=== PATIENT | female | born 1995 | race Caucasian/White ===

== ENCOUNTER 2019-04-12 06:15 | Inpatient (IN) | payer OTHER ==
[2019-04-12] VITALS (7 sets, daily range): BP systolic 112–126; BP diastolic 40–71
[~2019-04-12] VITALS: Ht 154.9 cm; Wt 100.7 kg
[2019-04-12] MEDS ORDERED: LACTATED RINGERS 1,000 ML IV SCH (07:00)
[2019-04-12] MEDS ORDERED: CITRIC ACID/SODIUM CITRATE 30 ML UDC PO SCH (07:00)
[2019-04-12 07:57] LABS: BASOPHILS % (AUTO) 0.4 % (0.0-2.0); EOSINOPHILS # (AUTO) 0.1 K/uL (0-0.4); EOSINOPHILS % (AUTO) 0.8 % (0.0-4.0); HEMATOCRIT 38.7 % (36-48); HEMOGLOBIN 12.7 g/dL (12.0-16.0); LYMPHOCYTES # (AUTO) 2.1 K/uL (2.5-16.5); LYMPHOCYTES % (AUTO) 25.3 % (20.5-51.1); MEAN CORPUSCULAR HEMOGLOBIN 29 pg (27-31); MEAN CORPUSCULAR HGB CONC 33 g/dL (33-37); MEAN CORPUSCULAR VOLUME 87.3 fL (80-94); MONOCYTES # (AUTO) 0.6 K/uL (0.8-1.0); MONOCYTES % (AUTO) 7.1 % (1.7-9.3); NEUTROPHILS # (AUTO) 5.5 K/uL (1.8-7.7); NEUTROPHILS % (AUTO) 66.4 % (42.2-75.2); PLATELET COUNT (AUTO) 211 K/uL (140-450); RED BLOOD CELL COUNT(AUTO) 4.44 MIL/uL (4.20-5.40); RED CELL DISTRIBUTION WIDTH 14.6 % (11.6-13.7); WHITE BLOOD COUNT (AUTO) 8.3 K/uL (4.8-10.8)
--- NOTE | 2019-04-12 08:16 | NUR ---
PATIENT HAS BEEN SCREENED AND CATEGORIZED LOW NUTRITION RISK. PATIENT WILL BE SEEN WITHIN 7 DAYS OF ADMISSION. 04/18/[address]
[2019-04-12] MEDS ORDERED: fentaNYL 0.05 MG/ML VIAL ONE (08:46)
[2019-04-12] MEDS ORDERED: MORPHINE PRES FREE 10 MG/10 ML AMP IV ONE (08:47)
[2019-04-12] MEDS ORDERED: ePHEDrine 50 MG/ML VIAL ONE (09:11)
[2019-04-12] MEDS ORDERED: BUPIVACAINE-MPF 0.75% 10 ML VIAL INJ ONE (09:11)
[2019-04-12] MEDS ORDERED: hydrALAZINE 20 MG/ML VIAL ONE (09:11)
[2019-04-12] MEDS ORDERED: PHENYLEPHRINE 10 MG/ML VIAL ONE (09:11)
[2019-04-12 09:18] LABS: CARBON DIOXIDE 20.1 mmol/L (21-32); POTASSIUM 4.1 mmol/L (3.5-5.1)
[2019-04-12 09:19] LABS: CREATININE 0.6 mg/dL (0.6-1.3)
[2019-04-12 09:21] LABS: TOTAL BILIRUBIN 0.6 mg/dL (0.0-1.0)
[2019-04-12 09:22] LABS: ALBUMIN 2.3 g/dL (3.4-5.0)
[2019-04-12] MEDS ORDERED: BUPRENORPHINE 0.3 MG/ML VIAL IV PRN (09:35)
[2019-04-12] MEDS ORDERED: IBUPROFEN 800 MG TAB PO PRN (09:35)
[2019-04-12] MEDS ORDERED: TEMAZEPAM 15 MG CAP PO PRN (09:35)
[2019-04-12] MEDS ORDERED: oxyCODONE/APAP 5/325 MG 1 TAB TAB PO PRN (09:35)
[2019-04-12] MEDS ORDERED: METHYLERGONOVINE 0.2 MG/ML AMP IM PRN (09:35)
[2019-04-12] MEDS ORDERED: KETOROLAC 30 MG/ML VIAL IVP PRN (09:50)
[2019-04-12] MEDS ORDERED: NALOXONE 0.4 MG/ML VIAL IVP PRN ×3 (09:50)
[2019-04-12] MEDS ORDERED: NALBUPHINE 10 MG/ML AMP IVP PRN (09:50)
[2019-04-12] MEDS ORDERED: ONDANSETRON 4 MG/2 ML VIAL IVP PRN ×2 (09:50)
[2019-04-12] MEDS ORDERED: BLOOD GLUCOSE MONITORING 1 DEV DEV FS SCH (09:50)
[2019-04-12] MEDS ORDERED: diphenhydrAMINE 50 MG/ML VIAL IVP PRN (09:50)
[2019-04-12] MEDS ORDERED: diphenhydrAMINE 50 MG/ML VIAL ONE (09:57)
[2019-04-12] MEDS ORDERED: OXYTOCIN 20 UNITS/LR PREMIX 1,000 ML IV ONE ×2 (09:58→20:50)
[2019-04-12] MEDS ORDERED: NACL 0.9% 1,000 ML IV SCH (10:40)
[2019-04-12 11:33] LABS: BARBITURATE, URINE NEG. ng/ml (NEG <=200); BENZODIAZEPINE, URINE NEG. ng/mL (NEG <=200); CANNABINOID, URINE NEG. ng/mL (NEG <=50); COCAINE, URINE NEG. ng/mL (NEG <=300); OPIATE, URINE NEG. ng/mL (NEG <=2000); PHENCYCLIDINE SCREEN,URINE NEG. ng/mL (NEG <=25)
--- NOTE | 2019-04-12 11:45 | NUR ---
TRANSFERRED FROM PER BED ACCOMPANIED BY [facility] NURSES S/P C- SECTION DUE TO LOW BP. PT IS AWAKE, ALERT AND ORIENTED. DENIES ANY DISCOMFORTS AT THIS TIME. 02 SAT 100 % ON RA. LUNGS CLEAR. RESP. EASY AND REGULAR. MANAGER HEALTH SHOWS SINUS RHYTHM WITHOUT ECTOPICS. IV LR WITH 20 UNITS PITOCIN INFUSING VIA LEFT HAND PERIPHERAL IV SITE. ASHER CATH. INTACT AND PATENT DRAINING TO YELLOWISH CLEAR URINE. ABD. SOFT. ABDOMINAL DRESSINGS DRY AND INTACT. MODERATE AMOUNT OF LOCHIA RUBRA NOTED. PERINEAL CARE DONE. SENSATION PRESENT ON L2. SL. NON PITTING EDEMA OF EXTREMITIES NOTED. ABLE TO TURN TO SIDED WITH MINIMAL ASSIST. HOB ELEVATED 30 DEGREES.
--- NOTE | 2019-04-12 12:05 | NUR ---
DR. PETTY CALLED. UPDATED ON PT'S CONDITION AND VITAL SIGNS. WILL TRANSFER PT. TO [facility] 1 HR. AFTER VITAL SIGNS ARE STABLE.
--- NOTE | 2019-04-12 12:15 | NUR ---
AT BEDSIDE. UPDATED ON PT'S CONDITION.
--- NOTE | 2019-04-12 12:40 | NUR ---
[facility] HERE TO CHECK PT.
--- NOTE | 2019-04-12 13:00 | NUR ---
BP 126/67. DENIES ANY DISCOMFORTS. 02 SAT 100% ON RA. ABD. DRESSINGS DRY AND INTACT. TRANSFERRED TO ROOM 217 PER BED.
--- NOTE | 2019-04-12 13:05 | NUR ---
REPORT GIVEN TO VLAD NOLAN.
[2019-04-12 13:16] LABS: APPEARANCE,URINE CLEAR (CLEAR); COLOR,URINE YELLOW (YELLOW)
[2019-04-12 13:17] LABS: BILIRUBIN,URINE NEGATIVE (NEGATIVE); BLOOD, URINE NEGATIVE (NEGATIVE); LEUKOCYTE ESTERASE ,URINE TRACE (NEGATIVE); NITRITE, URINE NEGATIVE (NEGATIVE); UGLUCOSE NEGATIVE (NEGATIVE)
[2019-04-12 13:20] LABS: RBC,URINE 0-5 /HPF (0-5); WBC,URINE 0-5 /HPF (0-5)
[2019-04-12] MEDS ORDERED: SENNA 8.6 MG TAB PO SCH (21:00)
[2019-04-12] MEDS: KETOROLAC 30 MG/ML VIAL IVP PRN (23:20)
[2019-04-13] MEDS ORDERED: OXYTOCIN 20 UNITS/LR PREMIX 1,000 ML IV ONE (05:15)
[2019-04-13] MEDS ORDERED: OXYTOCIN 20 UNITS in LACTATED RINGERS 1,000 ML IV SCH (05:20)
[2019-04-13] MEDS: KETOROLAC 30 MG/ML VIAL IVP PRN ×2 (06:04→19:51)
[2019-04-13 06:30] LABS: BASOPHILS % (AUTO) 0.2 % (0.0-2.0); EOSINOPHILS # (AUTO) 0.1 K/uL (0-0.4); EOSINOPHILS % (AUTO) 0.8 % (0.0-4.0); HEMATOCRIT 36.1 % (36-48); HEMOGLOBIN 11.8 g/dL (12.0-16.0); LYMPHOCYTES # (AUTO) 1.6 K/uL (2.5-16.5); LYMPHOCYTES % (AUTO) 12.8 % (20.5-51.1); MEAN CORPUSCULAR HEMOGLOBIN 29 pg (27-31); MEAN CORPUSCULAR HGB CONC 33 g/dL (33-37); MEAN CORPUSCULAR VOLUME 87.1 fL (80-94); MONOCYTES # (AUTO) 0.9 K/uL (0.8-1.0); MONOCYTES % (AUTO) 7.4 % (1.7-9.3); NEUTROPHILS # (AUTO) 9.8 K/uL (1.8-7.7); NEUTROPHILS % (AUTO) 78.8 % (42.2-75.2); PLATELET COUNT (AUTO) 163 K/uL (140-450); RED BLOOD CELL COUNT(AUTO) 4.15 MIL/uL (4.20-5.40); RED CELL DISTRIBUTION WIDTH 15.1 % (11.6-13.7); WHITE BLOOD COUNT (AUTO) 12.4 K/uL (4.8-10.8)
[2019-04-13] MEDS: CALCIUM POLYCARBOPHIL 625 MG TAB PO SCH ×3 (13:05→21:27)
[2019-04-13] MEDS: HYDROcodone/APAP 5/325 MG 1 TAB TAB PO PRN (13:05)
[2019-04-13] MEDS: BISACODYL 5 MG TABEC PO SCH ×2 (13:06→21:27)
[2019-04-13] MEDS: SIMETHICONE 80 MG TAB.CHEW PO PRN ×2 (13:06→21:28)
[2019-04-13] MEDS: DOCUSATE SOD/SENNA 50/8.6 MG 1 TAB PO SCH (21:28)
[2019-04-14] MEDS: HYDROcodone/APAP 5/325 MG 1 TAB TAB PO PRN ×4 (04:17→20:38)
[2019-04-14] MEDS: BISACODYL 5 MG TABEC PO SCH ×2 (09:04→20:36)
[2019-04-14] MEDS: CALCIUM POLYCARBOPHIL 625 MG TAB PO SCH ×4 (09:05→20:40)
[2019-04-14] MEDS: DOCUSATE SOD/SENNA 50/8.6 MG 1 TAB PO SCH (20:37)
[2019-04-14] MEDS ORDERED: INFLUENZA VACCINE QUAD 0.5 ML SYR IMVAC PRN (21:30)
[2019-04-15] MEDS: HYDROcodone/APAP 5/325 MG 1 TAB TAB PO PRN ×3 (02:50→17:22)
[2019-04-15] MEDS: CALCIUM POLYCARBOPHIL 625 MG TAB PO SCH ×4 (09:00→21:11)
[2019-04-15] MEDS: BISACODYL 5 MG TABEC PO SCH ×2 (09:01→21:10)
[2019-04-15] MEDS: DOCUSATE SOD/SENNA 50/8.6 MG 1 TAB PO SCH (21:10)
[2019-04-16] MEDS: HYDROcodone/APAP 5/325 MG 1 TAB TAB PO PRN ×2 (01:11→06:50)
[2019-04-16] MEDS: BISACODYL 5 MG TABEC PO SCH (10:02)
[2019-04-16] MEDS: CALCIUM POLYCARBOPHIL 625 MG TAB PO SCH (10:02)
== END 2019-04-16 13:05 | disposition home or self-care (01) | DRG 540 ==
LOC: MLD 06:15 → MFCC 08:55 → MIC 11:57 → MFCC 13:00
PROVIDERS: ADMIT Obstetrics & Gynecology; ATTEND Obstetrics & Gynecology
PROC: 3E0234Z Introduction of Serum, Toxoid and Vaccine into Muscle, Percutaneous Approach (ICD-10-PCS; 2019-04-12)
PROC: 10D00Z1 Extraction of Products of Conception, Low, Open Approach (ICD-10-PCS; principal; 2019-04-12 07:30)
DX: O36.63X0 Maternal care for excessive fetal growth, third trimester, not applicable or unspecified (principal); O24.429 Gestational diabetes mellitus in childbirth, unspecified control; Z37.0 Single live birth; Z3A.39 39 weeks gestation of pregnancy; Z23 Encounter for immunization
CPT/HCPCS: 36415; 51702; 80053; 80305; 81001; 82948; 85025; 86592; 86886; 86900; 86901; 87081; 90715; J0360; J0690; J1200; J1885; J2270; J2370; J2590; J3010; J3490; J7060; J7120